=== PATIENT | female | born 1985 | race Hispanic/Latino ===

== ENCOUNTER 2020-02-08 14:39 | Emergency (ER) | payer SELFPAY ==
[2020-02-08] MEDS ORDERED: METHYLPREDNISOLONE 125 MG INJ ONE (15:47)
[2020-02-08] MEDS ORDERED: NA CHLORIDE 0.9% 1,000 ML ONE (15:47)
[2020-02-08] MEDS ORDERED: ALBUTEROL INHALER 60 PUFF/8 GM IH ONE (15:48)
[2020-02-08 15:51] LABS: Absolute Lymphocytes (CBC) 1.5 K/uL (0.7-4.9); Basophils % 0.9 % (0-1.3); Hematocrit 37.7 % (36.0-45.0); Lymphocytes % 23.5 % (15.3-44.8); MPV 9.5 fL (7.6-11.3); RBC Red Blood Cell Count 4.51 M/uL (3.86-4.86)
[2020-02-08 16:08] LABS: ALT/SGPT 18 U/L (12-78); AST/SGOT 17 U/L (15-37); Albumin 4.2 g/dL (3.4-5.0); Alkaline Phosphatase 103 U/L (45-117); BUN Blood Urea Nitrogen 12 mg/dL (7-18); Bicarbonate 24 mmol/L (21-32); Bilirubin Direct < 0.1 mg/dL (0-0.2); Bilirubin Total 0.3 mg/dL (0.2-1.0); Glucose Level 97 mg/dL (74-106); Magnesium 2.2 mg/dL (1.8-2.4); NT PRO-BNP 136 pg/mL (<125); Potassium 3.3 mmol/L (3.5-5.1); Protein, Total 8.6 g/dL (6.4-8.2); Sodium Level 142 mmol/L (136-145); Troponin (Emerg Dept Use Only) < 0.02 ng/mL (0.0-0.045)
--- NOTE | 2020-02-08 16:16 | RAD REPORT ---
EXAM DESCRIPTION: RAD - Chest Single View - 02/08/2020 4:06 pm CLINICAL HISTORY: Cough;Dyspnea Chest pain. COMPARISON: Chest Single View dated 09/16/2017 FINDINGS: Portable technique limits examination quality. The lungs are grossly clear. The heart is normal in size. No displaced fractures. IMPRESSION: No acute intrathoracic process suspected.
[2020-02-08] MEDS ORDERED: dexAMETHasone 4 MG TAB ONE (16:34)
--- NOTE | 2020-02-08 16:36 | ER ---
Nurse's Notes [facility] Name: Jenna Monreal Age: 35 yrs Sex: Female : 1985 Arrival Date: 02/08/2020 Time: 14:44 Bed 14 Private MD: Diagnosis: Weakness;Malaise and fatigue;Alopecia areata, unspecified;Bronchitis, not specified as acute or chronic;Abnormal electrocardiogram [ECG] [EKG]-prolonged QT;Hypokalemia;Urinary tract infection, site not specified Presentation: 02/07 15:27 Chief complaint: Patient states: Syncopal episode this morning while brushing her ph teeth, general weakness, fatigue x approx 2-3 weeks, body aches, hair loss, cough, denies SOB or fever. Coronavirus screen: Patient reports a cough. Patient denies shortness of breath or difficulty breathing. Patient denies measured and/or subjective temperature greater than 100.4F prior to today's visit. Patient denies travel on a cruise ship or to a country the [facility] currently lists as an affected area. Patient denies contact with known and/or suspected case of COVID-19. Patient instructed to continue to wear a mask when interacting with others. Patient moved to private room, placed in contact and droplet isolation with eye protection until further assessment. Ebola Screen: No symptoms or risks identified at this time. Initial Sepsis Screen: Does the patient meet any 2 criteria? No. Patient's initial sepsis screen is negative. Does the patient have a suspected source of infection? No. Patient's initial sepsis screen is negative. Risk Assessment: Do you want to hurt yourself or someone else? Patient reports no desire to harm self or others. Onset of symptoms was February 08, 2020. 15:27 Method Of Arrival: Ambulatory ph 15:27 Acuity: NATALIE 3 ph Triage Assessment: 15:42 General: Appears in no apparent distress. Behavior is calm, cooperative, appropriate vc for age. Pain: Complains of pain in Generalized Pain does not radiate. Pain currently is 7 out of 10 on a pain scale. Quality of pain is described as aching. 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 - Social history:: Smoking status: Patient reports the use of cigarette tobacco products, smokes one-half pack cigarettes per day. Screenin:42 Abuse screen: Denies threats or abuse. Nutritional screening: No deficits noted. vc Tuberculosis screening: No symptoms or risk factors identified. 17:37 Fall Risk Fall in past 12 months (25 points). IV access (20 points). Total Gee Fall ll1 Scale indicates High Risk Score (45 or more points). Fall prevention measures have been instituted. Side Rails Up X 2 Placed Close to Nursing Station Frequent Obs/Assessments Occuring As available patient and family educated on Fall Prevention Program and Strategies. Assessment: 15:48 General: Appears in no apparent distress. Behavior is calm, cooperative, appropriate ll1 for age. Pain: Denies pain. Neuro: Level of Consciousness is awake, alert, obeys commands, Oriented to person, place, time, situation, Appropriate for age Project Controller are equal bilaterally Moves all extremities. Full function Gait is steady, Speech is normal, Facial symmetry appears normal, Pupils are PERRLA, Reports headache a syncopal episode weakness. Cardiovascular: No deficits noted. Heart tones S1 S2 Capillary refill < 3 seconds Clubbing of nail beds is absent JVD is absent Patient's skin is warm and dry. Rhythm is regular. Respiratory: Reports cough that is Airway is patent Trachea midline Respiratory effort is even, unlabored, Respiratory pattern is regular, the patient has mild shortness of breath. GI: No deficits noted. 16:48 Reassessment: No changes from previously documented assessment. Patient and/or family ll1 updated on plan of care and expected duration. Pain level reassessed. Patient is alert, oriented x 3, equal unlabored respirations, skin warm/dry/pink. 17:36 Reassessment: Patient appears in no apparent distress at this time. No changes from ll1 previously documented assessment. Patient and/or family updated on plan of care and expected duration. Pain level reassessed. Patient is alert, oriented x 3, equal unlabored respirations, skin warm/dry/pink. Vital Signs: 15:27 BP 150 / 85; Pulse 85; Resp 16; Temp 97.1(TE); Pulse Ox 100% on R/A; Weight 99.79 kg; ph Height 5 ft. 2 in. (157.48 cm); Pain 7/10; 16:00 BP 137 / 86; Pulse 80; Resp 17; Pulse Ox 100% ; ll1 17:35 BP 131 / 81; Pulse 81; Resp 17; Pulse Ox 99% ; Pain 0/10; ll1 15:27 Body Mass Index 40.24 (99.79 kg, 157.48 cm) ph ED Course: 14:44 Patient arrived in ED. bp1 14:46 Sherry Garvey FNP-C is PHCP. kb 14:46 Mando Ballard MD is Attending Physician. kb 15:11 Mando Ballard MD is Attending Physician. andrade 15:13 Denzel Rivers, JUAQUIN is Primary Nurse. ll1 15:29 Triage completed. ph 15:43 Arm band placed on right wrist. vc 15:43 Patient has correct armband on for positive identification. Fall risk band placed. vc Placed in gown. Bed in low position. Call light in reach. workers compensation specialist on. Pulse ox on. NIBP on. 15:48 Inserted saline lock: 22 gauge in right antecubital area, using aseptic technique. ll1 Blood collected. 16:06 XRAY Chest (1 view) In Process Unspecified. EDMS 16:33 Giovanny Ascencio DO is Referral Physician. andrade 16:34 Keith Fox MD is Referral Physician. andrade 17:36 IV discontinued, intact, bleeding controlled, No redness/swelling at site. Pressure ll1 dressing applied. 17:36 No provider procedures requiring assistance completed. ll1 Administered Medications: 15:48 Drug: NS 0.9% 1000 ml Route: IV; Rate: 1 bolus; Site: right antecubital; ll1 17:00 Follow up: Response: No adverse reaction; RASS: Alert and Calm (0); IV Status: ll1 Completed infusion; IV Intake: 1000ml 15:48 Drug: SOLU-Medrol 125 mg Route: IVP; Site: right antecubital; ll1 17:39 Follow up: Response: No adverse reaction ll1 15:48 Drug: Albuterol HFA Inhaler 4 puffs Route: Inhalation; ll1 16:30 Drug: Decadron 2 mg Route: PO; ll1 17:38 Follow up: Response: No adverse reaction; RASS: Alert and Calm (0) ll1 16:44 Drug: Potassium Effervescent Tablet 25 mEq Route: PO; ll1 17:38 Follow up: Response: No adverse reaction; RASS: Alert and Calm (0) 1 17:28 Drug: Rocephin 1 grams Route: IV; Rate: per protocol; Site: right antecubital; ll1 17:37 Follow up: Response: No adverse reaction; RASS: Alert and Calm (0); IV Status: ll1 Completed infusion; IV Intake: 20ml Intake: 17:00 IV: 1000ml; Total: 1000ml. ll1 17:37 IV: 20ml; Total: 1020ml. 1 Outcome: 16:35 Discharge ordered by . [facility] 17:34 Patient left the ED. 1 17:37 Discharged to home ambulatory. 1 17:37 Condition: stable 17:37 Discharge instructions given to patient, Instructed on discharge instructions, follow up and referral plans. medication usage, Demonstrated understanding of instructions, follow-up care, medications, Prescriptions given X 3. Addendum: 02/11/2020 13:07 Addendum: COVID-19 Result: Negative result given to RN to notify pt. Contacted by: Eleuterio Aldana RN. Notified pt of negative COVID 19 swab results. Pt advised that even with a negative test result they should remain in isolation until symptom free for 3 days without medication. Pt also advised to return to the ED for worsening symptoms. 02/14/2020 12:23 Addendum: Culture Results: Positive urine culture. Prescription called-in to pharmacy [facility]. Bactrim DS x 10 days called in to [facility]. Signatures: Dispatcher [employer] EDMS Sherry Garvey, SEAN-C Mahogany Segura RN RN [id number] Anderson, Corey, MD MD cha Hall, Patricia, RN RN ph Baxter, Heather, RN Natalie Colorado RN RN vc Lewis, Lynsay, RN RN ll1 Jenna Mcdermott
--- NOTE | 2020-02-08 16:36 | EDPHYS ---
Physician Documentation [facility] Name: Jenna Monreal Age: 35 yrs Sex: Female : 1985 Arrival Date: 02/08/2020 Time: 14:44 Bed 14 Private MD: ED Physician Mando Ballard HPI: 02/07 15:29 This 35 yrs old Female presents to ER via Unassigned with complaints of Passed andrade Out Prior To Arrival, General Weakness, Decreased Appetite, Unexplained Hair Loss. 15:29 The patient has experienced near-syncope, almost passed out. Onset: The andrade symptoms/episode began/occurred this morning. Duration: This was a single episode, that lasted 30 second(s). Context: the episode(s) was witnessed, by co-worker(s), occurred at work. Associated injury: The patient did not suffer any apparent associated injury. Associated signs and symptoms: Pertinent positives: weakness. The patient has not experienced similar symptoms in the past. 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 - Social history:: Smoking status: Patient reports the use of cigarette tobacco products, smokes one-half pack cigarettes per day. ROS: 15:31 Constitutional: Negative for fever, chills, and weight loss, Eyes: Negative for injury, andrade pain, redness, and discharge, ENT: Negative for injury, pain, and discharge, Neck: Negative for injury, pain, and swelling, Cardiovascular: Negative for chest pain, palpitations, and edema, Abdomen/GI: Negative for abdominal pain, nausea, vomiting, diarrhea, and constipation, Back: Negative for injury and pain, : Negative for injury, bleeding, discharge, and swelling, MS/Extremity: Negative for injury and deformity, Skin: Negative for injury, rash, and discoloration, Neuro: Negative for headache, weakness, numbness, tingling, and seizure, Psych: Negative for depression, anxiety, suicide ideation, homicidal ideation, and hallucinations, Allergy/Immunology: Negative for hives, rash, and allergies, Endocrine: Negative for neck swelling, polydipsia, polyuria, polyphagia, and marked weight changes, Hematologic/Lymphatic: Negative for swollen nodes, abnormal bleeding, and unusual bruising. 15:31 Respiratory: Positive for cough, shortness of breath, at rest. wheezing, inspiratory, expiratory. Exam: 15:31 Constitutional: This is a well developed, well nourished patient who is awake, alert, andrade and in no acute distress. Head/Face: Normocephalic, atraumatic. Eyes: Pupils equal round and reactive to light, extra-ocular motions intact. Lids and lashes normal. Conjunctiva and sclera are non-icteric and not injected. Cornea within normal limits. Periorbital areas with no swelling, redness, or edema. ENT: Nares patent. No nasal discharge, no septal abnormalities noted. Tympanic membranes are normal and external auditory canals are clear. Oropharynx with no redness, swelling, or masses, exudates, or evidence of obstruction, uvula midline. Mucous membranes moist. Neck: Trachea midline, no thyromegaly or masses palpated, and no cervical lymphadenopathy. Supple, full range of motion without nuchal rigidity, or vertebral point tenderness. No Meningismus. Chest/axilla: Normal chest wall appearance and motion. Nontender with no deformity. No lesions are appreciated. Cardiovascular: Regular rate and rhythm with a normal S1 and S2. No gallops, murmurs, or rubs. Normal PMI, no JVD. No pulse deficits. Abdomen/GI: Soft, non-tender, with normal bowel sounds. No distension or tympany. No guarding or rebound. No evidence of tenderness throughout. Back: No spinal tenderness. No costovertebral tenderness. Full range of motion. Skin: Warm, dry with normal turgor. Normal color with no rashes, no lesions, and no evidence of cellulitis. MS/ Extremity: Pulses equal, no cyanosis. Neurovascular intact. Full, normal range of motion. Neuro: Awake and alert, GCS 15, oriented to person, place, time, and situation. Cranial nerves II-XII grossly intact. Motor strength 5/5 in all extremities. Sensory grossly intact. Cerebellar exam normal. Normal gait. Psych: Awake, alert, with orientation to person, place and time. Behavior, mood, and affect are within normal limits. 15:31 Respiratory: the patient does not display signs of respiratory distress, Respirations: labored breathing, that is mild, Breath sounds: decreased breath sounds, that are mild, rhonchi, that are mild, stridor, is not appreciated, + upper airway congestion. Respiratory rate: 16 15:38 Neuro: Orientation: is normal, appropriate for stated age, no acute changes, Mentation: andrade is normal, appropriate for stated age, no acute changes, Memory: is normal, appropriate for stated age, no acute changes, Cranial nerves: grossly normal, is grossly normal based on the patient's age, no acute changes, Cerebellar function: is grossly normal, is grossly normal based on the patient's age, no acute changes, Motor: is normal, is grossly normal based on the patient's age, no acute changes, moves all fours, Sensation: no obvious gross deficits, Gait: is steady, appropriate for age, Deep tendon reflexes are 2+ (normal) in the bilateral brachioradialis, bicep, tricep and patellar and Achilles tendons, Babinski testing is normal, seizure activity, is not displayed by the patient. 16:26 ECG was reviewed by the Attending Physician. andrade 16:32 Musculoskeletal/extremity: ROM: no acute changes, Circulation is intact in all [facility] extremities. Sensation intact. Compartment Syndrome exam of affected extremity: is normal. Weight bearing: able to fully bear weight, DVT Exam: No signs of deep vein thrombosis. no pain, no swelling, no tenderness, negative Homans' sign noted on exam, no appreciated bluish discoloration, no erythema, no increased warmth. Vital Signs: 15:27 BP 150 / 85; Pulse 85; Resp 16; Temp 97.1(TE); Pulse Ox 100% on R/A; Weight 99.79 kg; ph Height 5 ft. 2 in. (157.48 cm); Pain 7/10; 16:00 BP 137 / 86; Pulse 80; Resp 17; Pulse Ox 100% ; ll1 17:35 BP 131 / 81; Pulse 81; Resp 17; Pulse Ox 99% ; Pain 0/10; ll1 15:27 Body Mass Index 40.24 (99.79 kg, 157.48 cm) ph MDM: 15:11 Patient medically screened. [facility] 15:37 Data reviewed: vital signs, nurses notes, lab test result(s), EKG, radiologic studies, [facility] plain films. 16:21 Differential diagnosis: Anemia Anxiety Reaction asthma, Bronchitis pneumonia, pulmonary andrade edema, Pulmonary Embolism reactive airway disease, Unstable Angina. Antibiotic administration: The patient is discharged and will get outpatient antibiotics, Zithromax. Differential Diagnosis: cardiac arrhythmia, drug effect, , vasovagal episode. The patient's Wells Deep Vein Thrombosis Score was calculated as follows: Total Score: 0-2 Pts- Low Risk. Differential Diagnosis: Obstructed Airway Bronchitis Influenza Upper Respiratory Infection Pharyngitis Asthma Exacerbation Viral Syndrome Pneumonia. The patient's pulmonary embolism risk score was calculated as follows: Total Score: 0-2 points. This patient was found to be at low risk for a pulmonary embolism by using the Well's assessment criteria. Data interpreted: medical aides teacher: rate is 85 beats/min, Pulse oximetry: is 100 %. Test interpretation: by ED physician or midlevel provider: ECG, plain radiologic studies. Counseling: I had a detailed discussion with the patient and/or guardian regarding: the historical points, exam findings, and any diagnostic results supporting the discharge/admit diagnosis, the presence of at least one elevated blood pressure reading (>120/80) during this emergency department visit, lab results, radiology results, the need for outpatient follow up. ED course: pt much improved, breathing easier, will dc with follow up, return if worse. 16:31 ED course: pt feels fatigued,loosing hair in apatch, will do a tsh and refer to pcp for andrade follow up. 02/07 15:27 Order name: Basic Metabolic Panel; Complete Time: 16:18 02/07 15:27 Order name: CBC with Diff; Complete Time: 16:18 02/07 15:27 Order name: LFT's; Complete Time: 16:18 02/07 15:27 Order name: Magnesium; Complete Time: 16:18 02/07 15:27 Order name: NT PRO-BNP; Complete Time: 16:18 02/07 15:27 Order name: Troponin (emerg Dept Use Only); Complete Time: 16:18 02/07 15:27 Order name: XRAY Chest (1 view); Complete Time: 16:18 02/07 15:27 Order name: D-Dimer; Complete Time: 16:28 02/07 15:27 Order name: COVID-19 andrade 02/07 16:31 Order name: TSH: pt tired, losing hair; Complete Time: 17:26 [facility] 02/07 16:55 Order name: Urine Culture [facility] 02/07 16:56 Order name: Urine Dipstick--Ancillary (enter results); Complete Time: 17:15 oh 02/07 16:56 Order name: Urine --Ancillary (enter results); Complete Time: 17:15 oh 02/07 15:27 Order name: EKG; Complete Time: 15:28 [facility] 02/07 15:27 Order name: Cardiac monitoring; Complete Time: 15:41 [facility] 02/07 15:27 Order name: EKG - Nurse/Tech; Complete Time: 15:41 [facility] 02/07 15:27 Order name: IV Saline Lock; Complete Time: 15:41 [facility] 02/07 15:27 Order name: Labs collected and sent; Complete Time: 15:41 [facility] 02/07 15:27 Order name: O2 Per Protocol; Complete Time: 15:41 [facility] 02/07 15:27 Order name: O2 Sat Monitoring; Complete Time: 15:41 [facility] EC:26 Rate is 85 beats/min. Rhythm is regular. QRS [place] is Normal. DE interval is normal. QRS andrade interval is normal. QT interval is prolonged at 392 msec. No Q waves. T waves are Normal. No ST changes noted. Clinical impression: NSR w/ Non-specific ST/T Changes and No evidence of ischemia. Interpreted by me. Reviewed by me. Administered Medications: 15:48 Drug: NS 0.9% 1000 ml Route: IV; Rate: 1 bolus; Site: right antecubital; 1 17:00 Follow up: Response: No adverse reaction; RASS: Alert and Calm (0); IV Status: ll1 Completed infusion; IV Intake: 1000ml 15:48 Drug: SOLU-Medrol 125 mg Route: IVP; Site: right antecubital; ll1 17:39 Follow up: Response: No adverse reaction ll1 15:48 Drug: Albuterol HFA Inhaler 4 puffs Route: Inhalation; ll1 16:30 Drug: Decadron 2 mg Route: PO; ll1 17:38 Follow up: Response: No adverse reaction; RASS: Alert and Calm (0) ll1 16:44 Drug: Potassium Effervescent Tablet 25 mEq Route: PO; ll1 17:38 Follow up: Response: No adverse reaction; RASS: Alert and Calm (0) ll1 17:28 Drug: Rocephin 1 grams Route: IV; Rate: per protocol; Site: right antecubital; ll1 17:37 Follow up: Response: No adverse reaction; RASS: Alert and Calm (0); IV Status: ll1 Completed infusion; IV Intake: 20ml Disposition: 02/08/20 16:35 Discharged to Home. Impression: Weakness, Malaise and fatigue, Alopecia areata, unspecified, Bronchitis, not specified as acute or chronic, Abnormal electrocardiogram [ECG] [EKG] - prolonged QT, Hypokalemia, Urinary tract infection, site not specified. - Condition is Stable. - Discharge Instructions: Acute Bronchitis, Adult, Potassium Content of Foods, How to Use an Inhaler, Near-Syncope, Upper Respiratory Infection, Adult, Urinary Tract Infection, Adult, Weakness, Fatigue, Urinary Tract Infection, Adult, Bavi-np-Dqly, Near-Syncope, Uzkw-om-Kfle, Upper Respiratory Infection, Adult, Pqce-lz-Bvfp, Long QT Syndrome, Cough, Adult, Yjpn-ic-Rvam, Weakness, Wwaw-ll-Ktyg, Aspirin and Your Heart, Cough, Adult, How to Use an Inhaler, Guyu-ul-Mgis, Hypokalemia. - Prescriptions for dexamethasone 2 mg Oral tablet - take 1 tablet by ORAL route 3 times per day; 15 tablet. Albuterol Sulfate 90 mcg/actuation - inhale 1-2 puff by INHALATION route every 4-6 hours; 1 Inhaler. Augmentin 875- 125 mg Oral Tablet - take 1 tablet by ORAL route every 12 hours for 7 days; 14 tablet. - Medication Reconciliation Form, Thank You Letter, Antibiotic Education, Prescription Opioid Use, Work release form form. - Follow up: Private Physician; When: 2 - 3 days; Reason: Recheck today's complaints, Continuance of care, Re-evaluation by your physician. Follow up: Giovanny Ascencio DO; When: 2 - 3 days; Reason: Recheck today's complaints, Re-evaluation by your physician. Follow up: Keith Fox MD; When: 2 - 3 days; Reason: Recheck today's complaints, Re-evaluation by your physician. - Problem is new. - Symptoms have improved. Signatures: Dispatcher [employer] Mando García MD MD cha Hall, Patricia, RN RN Denzel Huddleston RN RN ll1 Corrections: (The following items were deleted from the chart) 16:55 16:35 02/08/2020 16:35 Discharged to Home. Impression: Weakness; Malaise and fatigue; andrade Alopecia areata, unspecified; Bronchitis, not specified as acute or chronic; Abnormal electrocardiogram [ECG] [EKG] - prolonged QT; Hypokalemia. Condition is Stable. Forms are Medication Reconciliation Form, Thank You Letter, Antibiotic Education, Prescription Opioid Use. Follow up: Private Physician; When: 2 - 3 days; Reason: Recheck today's complaints, Continuance of care, Re-evaluation by your physician. Follow up: Giovanny Ascencio; When: 2 - 3 days; Reason: Recheck today's complaints, Re-evaluation by your physician. Follow up: Keith Fox; When: 2 - 3 days; Reason: Recheck today's complaints, Re-evaluation by your physician. Problem is new. Symptoms have improved. [facility] 17:34 16:55 02/08/2020 16:35 Discharged to Home. Impression: Weakness; Malaise and fatigue; ll1 Alopecia areata, unspecified; Bronchitis, not specified as acute or chronic; Abnormal electrocardiogram [ECG] [EKG] - prolonged QT; Hypokalemia; Urinary tract infection, site not specified. Condition is Stable. Discharge Instructions: Acute Bronchitis, Adult, Potassium Content of Foods, How to Use an Inhaler, Near-Syncope, Upper Respiratory Infection, Adult, Weakness, Fatigue, Near-Syncope, Lhrd-fe-Nnlr, Upper Respiratory Infection, Adult, Ywtp-qg-Obgo, Long QT Syndrome, Cough, Adult, Nozb-uo-Qjgf, Weakness, Miia-nb-Fjry, Aspirin and Your Heart, Cough, Adult, How to Use an Inhaler, Hvky-sh-Vtnv, Hypokalemia. Prescriptions for dexamethasone 2 mg Oral tablet - take 1 tablet by ORAL route 3 times per day; 15 tablet, Zithromax Z-Panchito 250 mg Oral Tablet - take 1 tablet by ORAL route as directed for 5 days Day 1 - take two (2) tablets one time. Day 2, 3, 4 , 5 take one (1) tablet once daily.; 6 tablet, Albuterol Sulfate 90 mcg/actuation - inhale 1-2 puff by INHALATION route every 4-6 hours; 1 Inhaler. and Forms are Medication Reconciliation Form, Thank You Letter, Antibiotic Education, Prescription Opioid Use. Follow up: Private Physician; When: 2 - 3 days; Reason: Recheck today's complaints, Continuance of care, Re-evaluation by your physician. Follow up: Giovanny Ascencio; When: 2 - 3 days; Reason: Recheck today's complaints, Re-evaluation by your physician. Follow up: Keith Fox; When: 2 - 3 days; Reason: Recheck today's complaints, Re-evaluation by your physician. Problem is new. Symptoms have improved. andrade
[2020-02-08] MEDS ORDERED: POTASSIUM 25 MEQ EFFERV TAB ONE (16:51)
[2020-02-08 17:05] LABS: Urine Blood 2+ (NEG); Urine Glucose NEGATIVE (NEG); Urine Protein NEGATIVE (NEG); Urine Specific Gravity 1.025 (1.005-1.030)
[2020-02-08] MEDS ORDERED: CEFTRIAXONE/SWI 1gm 1 GM/10 ML SYR ONE (17:09)
[2020-02-08 17:44] VITALS: TEMP 97.1
[2020-02-08 17:47] VITALS: BP 131/81; O2SAT 99
== END 2020-02-08 17:34 | disposition home or self-care (01) ==
LOC: ER 14:39
DX: J40 Bronchitis, not specified as acute or chronic (principal); Z20.828 Contact with and (suspected) exposure to other viral communicable diseases; N39.0 Urinary tract infection, site not specified; E87.6 Hypokalemia; I45.81 Long QT syndrome; R53.81 Other malaise; R53.83 Other fatigue; L63.9 Alopecia areata, unspecified; F17.210 Nicotine dependence, cigarettes, uncomplicated
CPT/HCPCS: 36415; 71045; 80048; 80076; 81003; 81025; 83735; 83880; 84443; 84484; 85025; 85379; 87077; 87086; 87088; 87186; 93005; 96361; 96374; 96375; 99285; J0696; J2930; J7030; J8540; U0001

== ENCOUNTER 2022-05-29 15:13 | Emergency (ER) | payer SELFPAY ==
[2022-05-29] MEDS ORDERED: ALBUTEROL 2.5 MG/3 ML NEB SOL ONE (16:08)
[2022-05-29] MEDS ORDERED: IPRATROPIUM BROM 0.5MG/2.5ML ONE (16:08)
--- NOTE | 2022-05-29 16:10 | RAD REPORT ---
EXAM DESCRIPTION: RAD - Chest Pa And Lat (2 Views) - 05/29/2022 3:52 pm CLINICAL HISTORY: Cough COMPARISON: Portable 02/08/2020 TECHNIQUE: Frontal and lateral views of the chest were obtained. FINDINGS: The lungs are clear. Lung markings are similar to comparison. Heart size is normal and ce ntral vasculature is within normal limits. No pleural effusion or pneumothorax seen. No acute bony finding noted. No aortic abnormality. IMPRESSION: No acute cardiopulmonary process.
[2022-05-29] MEDS ORDERED: OSELTAMIVIR 75 MG CAP ONE (16:20)
--- NOTE | 2022-05-29 16:20 | ER ---
Nurse's Notes [facility] Name: Jenna Monreal Age: 37 yrs Sex: Female : 1985 Arrival Date: 05/29/2022 Time: 15:15 Bed 28 Private MD: Diagnosis: Influenza due to identified novel influenza A virus Presentation: 05/29 15:27 Chief complaint: Patient states: fever, cough, congestion since yesterday. Coronavirus ld1 screen: At this time, the client does not indicate any symptoms associated with coronavirus-19. Ebola Screen: No symptoms or risks identified at this time. Initial Sepsis Screen: Does the patient meet any 2 criteria? No. Patient's initial sepsis screen is negative. Does the patient have a suspected source of infection? No. Patient's initial sepsis screen is negative. Risk Assessment: Do you want to hurt yourself or someone else? Patient reports no desire to harm self or others. Onset of symptoms was May 29, 2022. 15:27 Method Of Arrival: Ambulatory ld1 15:27 Acuity: NATALIE 4 ld1 Triage Assessment: 15:28 General: Appears in no apparent distress. comfortable, Behavior is calm, cooperative, ld1 appropriate for age. Pain: Denies pain. EENT: No signs and/or symptoms were reported regarding the EENT system. Neuro: Level of Consciousness is awake, alert, obeys commands, Oriented to person, place, time, situation. Cardiovascular: Capillary refill < 3 seconds Patient's skin is warm and dry. Respiratory: Airway is patent Respiratory effort is even, unlabored, Breath sounds with wheezes in right lower lobe. GI: Abdomen is round non-distended. : No signs and/or symptoms were reported regarding the genitourinary system. 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 - Social history:: Smoking status: Patient reports the use of cigarette tobacco products, smokes one-half pack cigarettes per day, Reported history of juuling and/or vaping. Patient/guardian denies using alcohol. Screenin:12 Abuse screen: Denies threats or abuse. Denies injuries from another. Nutritional tp1 screening: No deficits noted. Tuberculosis screening: No symptoms or risk factors identified. Fall Risk None identified. Assessment: 16:10 Respiratory: Reports shortness of breath Breath sounds with wheezes. mb8 Vital Signs: 15:27 BP 122 / 72; Pulse 81; Resp 18; Temp 98.5(O); Pulse Ox 100% on R/A; Weight 113.4 kg; ld1 Height 5 ft. 4 in. (162.56 cm); Pain 0/10; 15:27 Body Mass Index 42.91 (113.40 kg, 162.56 cm) ld1 ED Course: 15:15 Patient arrived in ED. mr 15:18 Guru Sherry, [facility] kb 15:18 Mario Russo MD is Attending Physician. kb 15:28 Triage completed. ld1 15:28 Arm band placed on right wrist. ld1 15:30 Flu Sent. ld1 15:30 COVID-19 SARS RT PCR (Document "Date of Onset" if Symptomatic) Sent. ld1 15:53 Chest Pa And Lat (2 Views) XRAY In Process Unspecified. EDMS 16:11 Sarah Weinberg, JUAQUIN is Primary Nurse. tp1 16:11 Patient has correct armband on for positive identification. Bed in low position. Call tp1 light in reach. Adult w/ patient. 16:12 Pulse ox on. NIBP on. tp1 16:12 No provider procedures requiring assistance completed. Patient did not have IV access tp1 during this emergency room visit. Administered Medications: 16:10 Drug: Albuterol 2.5 mg Route: Inhalation; mb8 16:10 Drug: AtroVENT (ipratropium) Aerosol 0.5 mg Route: Inhalation; mb8 16:33 Follow up: Response: No adverse reaction; Marked relief of symptoms mb8 16:33 Follow up: Response: No adverse reaction; Marked relief of symptoms mb8 16:20 Drug: Tamiflu (oseltamivir) 75 mg Route: PO; mb8 16:33 Follow up: Response: Medication administered at discharge. mb8 Medication: 16:12 VIS not applicable for this client. tp1 Outcome: 16:20 Discharge ordered by . andres 16:32 Discharged to home ambulatory, with family. mb8 16:32 Condition: stable 16:32 Discharge instructions given to patient, Instructed on discharge instructions, follow up and referral plans. medication usage, Demonstrated understanding of instructions, follow-up care, medications, Prescriptions given X 1. 16:35 Patient left the ED. mb8 Signatures: Dispatcher [employer] EDOH Sherry Garvey, ALICE SECURITY SYSTEMS INSTALLER-Lizbeth Connors Lauren, RN RN ld1 Sarah Weinberg RN RN tp1 Chi Linn, JUAQUIN RN mb8 Corrections: (The following items were deleted from the chart) 15:29 15:28 PSHx: None; ld1 ld1
--- NOTE | 2022-05-29 16:20 | EDPHYS ---
Physician Documentation [facility] Name: Jenna Monreal Age: 37 yrs Sex: Female : 1985 Arrival Date: 05/29/2022 Time: 15:15 Bed 28 Private MD: ED Physician Mario Russo HPI: 05/29 16:19 This 37 yrs old Female presents to ER via Ambulatory with complaints of Flu kb Symptoms. 16:19 The patient or guardian reports cough, that is intermittent, described as moderate, flu kb symptoms, low-grade fever, myalgias. Onset: The symptoms/episode began/occurred 2 day(s) ago. Severity of symptoms: At their worst the symptoms were moderate, in the emergency department the symptoms are unchanged. Modifying factors: The symptoms are alleviated by nothing, the symptoms are aggravated by nothing. Associated signs and symptoms: Pertinent positives: fever, rhinorrhea, Pertinent negatives: chest pain, diarrhea, ear ache, nausea, sore throat, vomiting. The patient has not experienced similar symptoms in the past. The patient has not recently seen a physician. Pt reports cough, congestion, fever and headache for 2 days. 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 - Social history:: Smoking status: Patient reports the use of cigarette tobacco products, smokes one-half pack cigarettes per day, Reported history of juuling and/or vaping. Patient/guardian denies using alcohol. ROS: 16:15 Cardiovascular: Negative for chest pain, palpitations, and edema. kb 16:15 Constitutional: Positive for fever. 16:15 ENT: Positive for rhinorrhea, sinus congestion. 16:15 Respiratory: Positive for cough. 16:15 Neuro: Positive for headache. 16:15 All other systems are negative. Exam: 16:15 Constitutional: This is a well developed, well nourished patient who is awake, alert, kb and in no acute distress. Head/Face: Normocephalic, atraumatic. ENT: Moist Mucous membranes Cardiovascular: Regular rate and rhythm with a normal S1 and S2. No gallops, murmurs, or rubs. No pulse deficits. Abdomen/GI: Soft, non-tender. No distention Skin: Warm, dry with normal turgor. Normal color. MS/ Extremity: Pulses equal, no cyanosis. Neurovascular intact. Full, normal range of motion. Neuro: Awake and alert, GCS 15, oriented to person, place, time, and situation. Moves all extremities. Normal gait. Psych: Awake, alert, with orientation to person, place and time. Behavior, mood, and affect are within normal limits. 16:15 Respiratory: the patient does not display signs of respiratory distress, Respirations: normal, Breath sounds: wheezing: expiratory that is mild, is heard in the right middle lobe, right lower lobe, right posterior middle lobe and right posterior lower lobe. Vital Signs: 15:27 BP 122 / 72; Pulse 81; Resp 18; Temp 98.5(O); Pulse Ox 100% on R/A; Weight 113.4 kg; ld1 Height 5 ft. 4 in. (162.56 cm); Pain 0/10; 15:27 Body Mass Index 42.91 (113.40 kg, 162.56 cm) ld1 MDM: 15:18 Patient medically screened. kb 16:15 Data reviewed: vital signs, nurses notes. Data interpreted: Pulse oximetry: on room air kb is 100 %. Interpretation: normal. Counseling: I had a detailed discussion with the patient and/or guardian regarding: the historical points, exam findings, and any diagnostic results supporting the discharge/admit diagnosis, lab results, radiology results, the need for outpatient follow up, a family practitioner, to return to the emergency department if symptoms worsen or persist or if there are any questions or concerns that arise at home. 05/29 15:29 Order name: Flu; Complete Time: 16:09 kb 05/29 15:29 Order name: COVID-19 SARS RT PCR (Document "Date of Onset" if Symptomatic); Complete kb Time: 16:13 05/29 15:29 Order name: Chest Pa And Lat (2 Views) XRAY; Complete Time: 16:13 kb Administered Medications: 16:10 Drug: Albuterol 2.5 mg Route: Inhalation; mb8 16:10 Drug: AtroVENT (ipratropium) Aerosol 0.5 mg Route: Inhalation; 8 16:33 Follow up: Response: No adverse reaction; Marked relief of symptoms 8 16:33 Follow up: Response: No adverse reaction; Marked relief of symptoms 8 16:20 Drug: Tamiflu (oseltamivir) 75 mg Route: PO; 8 16:33 Follow up: Response: Medication administered at discharge. 8 Disposition: 18:09 Co-signature as Attending Physician, Mario Russo MD. rn Disposition Summary: 05/29/22 16:20 Discharge Ordered Location: Home kb Condition: Stable kb Diagnosis - Influenza due to identified novel influenza A virus kb Followup: kb - With: Private Physician - When: 2 - 3 days - Reason: Recheck today's complaints, Continuance of care, Re-evaluation by your physician Followup: kb - With: Emergency Department - When: As needed - Reason: Worsening of condition Discharge Instructions: - Discharge Summary Sheet kb - Influenza, Adult, [id number] kb Forms: - Medication Reconciliation Form kb - Thank You Letter kb - Work release form kb - Antibiotic Education kb - Prescription Opioid Use kb Prescriptions: - Tamiflu 75 mg Oral Capsule - take 1 tablet by ORAL route every 12 hours for 5 days; 9 tablet; Refills: 0, kb Product Selection Permitted Signatures: Dispatcher [employer] EDSherry Montilla, FLAP LINING BINDER-C FLAP LINING BINDER-Jaspalb Mario Russo MD MD rn Dibbern, Lauren, RN RN ld1 Chi Linn RN RN mb8 Corrections: (The following items were deleted from the chart) 15:29 15:28 PSHx: None; ld1 ld1
[2022-05-29 17:58] VITALS: BP 122/72; TEMP 98.5; O2SAT 100
== END 2022-05-29 16:35 | disposition home or self-care (01) ==
LOC: ER 15:13
DX: J10.1 Influenza due to other identified influenza virus with other respiratory manifestations (principal); Z20.822 Contact with and (suspected) exposure to COVID-19
CPT/HCPCS: 71046; 87804; 99284; U0003

== ENCOUNTER 2022-08-22 20:30 | Emergency (ER) | payer SELFPAY ==
[2022-08-22] MEDS ORDERED: ACETAMINOPHEN 500 MG TAB ONE (21:08)
--- NOTE | 2022-08-22 22:11 | ER ---
Nurse's Notes [facility] Name: Jenna Monreal Age: 37 yrs Sex: Female : 1985 Arrival Date: 08/22/2022 Time: 20:34 Bed 11 Private MD: Diagnosis: Acute tonsillitis, unspecified Presentation: 08/22 20:45 Chief complaint: Patient states: My throat hurts really bad. I noticed it first this kd3 morning around 7:30. It hurts to swallow. I was supposed to have my tonsils removed but I never did. Coronavirus screen: Vaccine status: Patient reports being unvaccinated. Ebola Screen: No symptoms or risks identified at this time. Initial Sepsis Screen: Does the patient meet any 2 criteria? No. Patient's initial sepsis screen is negative. Does the patient have a suspected source of infection? No. Patient's initial sepsis screen is negative. Risk Assessment: Do you want to hurt yourself or someone else? Patient reports no desire to harm self or others. Onset of symptoms was August 22, 2022. 20:45 Method Of Arrival: Ambulatory kd3 20:45 Acuity: NATALIE 4 kd3 Triage Assessment: 20:46 General: Appears in no apparent distress. Behavior is calm, cooperative. Pain: kd3 Complains of pain in uvula, left aspect of posterior pharynx and right aspect of posterior pharynx. 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 - Social history:: Smoking status: Patient reports the use of cigarette tobacco products, 2 a day , Reported history of juuling and/or vaping. Assessment: 21:24 Reassessment: pt intermittently coughing and clearing throat. General: Appears mb9 comfortable, Behavior is cooperative. Pain: Complains of pain in throat. Neuro: Donovan Agitation-Sedation Scale (RASS): 0 - Alert and Calm Level of Consciousness is awake, alert, obeys commands, Oriented to person, place, time, situation, Appropriate for age. Cardiovascular: Capillary refill < 3 seconds is brisk Patient's skin is warm and dry. Respiratory: Airway is patent Respiratory effort is even, unlabored, Respiratory pattern is regular, symmetrical. Respiratory:. GI: Patient currently denies diarrhea, nausea. : No signs and/or symptoms were reported regarding the genitourinary system. EENT: Throat is reddened. Derm: Skin is pink, warm \T\ dry. Musculoskeletal: Range of motion: intact in all extremities. 22:25 Reassessment: No changes from previously documented assessment. Patient and/or family mb9 updated on plan of care and expected duration. Pain level reassessed. Patient is alert, oriented x 3, equal unlabored respirations, skin warm/dry/pink. Vital Signs: 20:43 BP 139 / 76; Pulse 102; Resp 19; Temp 98.2(O); Pulse Ox 100% on R/A; Weight 108.86 kg; kd3 Height 5 ft. 4 in. (162.56 cm); Pain 7/10; 22:25 BP 140 / 78; Pulse 105; Resp 22; Pulse Ox 100% ; mb9 20:43 Body Mass Index 41.20 (108.86 kg, 162.56 cm) kd3 ED Course: 20:34 Patient arrived in ED. ag3 20:39 Mando Mcdonald PA is PHCP. cp 20:39 Mando Ballard MD is Attending Physician. cp 20:46 Triage completed. kd3 20:46 Arm band placed on right wrist. kd3 21:07 Strep Sent. kd3 22:17 Lizbeth Alatorre, RN is Primary Nurse. mb9 22:25 No provider procedures requiring assistance completed. Patient did not have IV access mb9 during this emergency room visit. Administered Medications: 21:07 Drug: Tylenol 1000 mg Route: PO; kd3 22:25 Drug: Clindamycin 300 mg Route: PO; mb9 22:25 Follow up: Response: No adverse reaction mb9 Outcome: 22:11 Discharge ordered by . cp 22:26 Discharged to home ambulatory. mb9 22:26 Condition: stable 22:26 Discharge instructions given to patient, Instructed on discharge instructions, follow up and referral plans. Demonstrated understanding of instructions, follow-up care, medications, Prescriptions given X 3. 22:26 Patient left the ED. mb9 Signatures: Mando Mcdonald PA PA cp Gomez, [facility] Rom, Clarice, RN RN kd3 Lizbeth Alatorre RN RN mb9 Corrections: (The following items were deleted from the chart) 20:46 20:44 Chief complaint: elsi3 kd3
--- NOTE | 2022-08-22 22:11 | EDPHYS ---
Physician Documentation [facility] Name: Jenna Monreal Age: 37 yrs Sex: Female : 1985 Arrival Date: 08/22/2022 Time: 20:34 Bed 11 Private MD: ED Physician Mando Ballard HPI: 08/22 21:00 This 37 yrs old Female presents to ER via Ambulatory with complaints of Sore cp Throat. 21:00 The patient presents with sore throat. The patient describes throat pain as constant. cp Onset: The symptoms/episode began/occurred this morning, and became worse today. Associated signs and symptoms: Pertinent negatives: congestion, cough, diarrhea, fever, vomiting. Severity of symptoms: in the emergency department the symptoms are unchanged. 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 - Social history:: Smoking status: Patient reports the use of cigarette tobacco products, 2 a day , Reported history of juuling and/or vaping. ROS: 21:05 Constitutional: Negative for body aches, chills, fever, poor PO intake. cp 21:05 Eyes: Negative for injury, pain, redness, and discharge. cp 21:05 ENT: Positive for sore throat, Negative for drainage from ear(s), ear pain, difficulty swallowing, difficulty handling secretions. 21:05 Respiratory: Negative for cough, shortness of breath, wheezing. 21:05 Abdomen/GI: Negative for abdominal pain, vomiting, diarrhea, constipation. 21:05 Neuro: Negative for altered mental status, headache, weakness. 21:05 All other systems are negative. Exam: 21:10 Constitutional: The patient appears in no acute distress, alert, awake, non-toxic, well cp developed, well nourished, obese. 21:10 Head/Face: Normocephalic, atraumatic. cp 21:10 Eyes: Periorbital structures: appear normal, Conjunctiva: normal, no exudate, no injection, Sclera: no appreciated abnormality, Lids and lashes: appear normal, bilaterally. 21:10 ENT: External ear(s): are unremarkable, Ear canal(s): are normal, clear, TM's: dullness, bilaterally, Nose: is normal, Mouth: Lips: moist, Oral mucosa: moist, Posterior pharynx: Airway: no evidence of obstruction, patent, Tonsils: bilaterally enlarged, with erythema, with exudate, Uvula: midline, erythema, that is moderate. 21:10 Neck: ROM/movement: is normal, is supple, without pain, no range of motions limitations, no meningismus, Lymph nodes: lymphadenopathy is appreciated, anterior cervical nodes. 21:10 Chest/axilla: Inspection: normal. 21:10 Cardiovascular: Rate: tachycardic. 21:10 Respiratory: the patient does not display signs of respiratory distress, Respirations: normal, no use of accessory muscles, no retractions, labored breathing, is not present, Breath sounds: are clear throughout, no decreased breath sounds, no stridor, no wheezing. 21:10 Abdomen/GI: Exam negative for discomfort, distension, guarding, Inspection: abdomen appears normal. 21:10 Skin: no rash present. Vital Signs: 20:43 BP 139 / 76; Pulse 102; Resp 19; Temp 98.2(O); Pulse Ox 100% on R/A; Weight 108.86 kg; kd3 Height 5 ft. 4 in. (162.56 cm); Pain 7/10; 22:25 BP 140 / 78; Pulse 105; Resp 22; Pulse Ox 100% ; mb9 20:43 Body Mass Index 41.20 (108.86 kg, 162.56 cm) kd3 MDM: 20:52 Patient medically screened. andrade 21:00 Differential diagnosis: viral Infection, bacterial infection, epiglottitis, cp rené-goyal virus, group A strep tonsillitis, mononucleosis, peritonsillar abscess. 22:10 Data reviewed: vital signs, nurses notes, lab test result(s), and as a result, I will cp discharge patient. 22:10 Consideration of Admission/Observation Escalation of care including cp admission/observation considered. I considered the following discharge prescriptions or medication management in the emergency department Medications were administered in the Emergency Department. See MAR. Test considered but Not performed: Labs: CBC, BMP. CT: soft tissue neck. Counseling: I had a detailed discussion with the patient and/or guardian regarding: the historical points, exam findings, and any diagnostic results supporting the discharge/admit diagnosis, lab results, to return to the emergency department if symptoms worsen or persist or if there are any questions or concerns that arise at home. 08/22 20:59 Order name: Strep cp 08/22 22:06 Order name: Throat Culture EDMS Administered Medications: 21:07 Drug: Tylenol 1000 mg Route: PO; kd3 22:25 Drug: Clindamycin 300 mg Route: PO; mb9 22:25 Follow up: Response: No adverse reaction mb9 Disposition Summary: 08/22/22 22:11 Discharge Ordered Location: Home cp Problem: new cp Symptoms: are unchanged cp Condition: Stable cp Diagnosis - Acute tonsillitis, unspecified cp Followup: cp - With: Private Physician - When: 1 - 2 days - Reason: Worsening of condition Discharge Instructions: - Discharge Summary Sheet cp - Tonsillitis cp Forms: - Medication Reconciliation Form cp - Thank You Letter cp - Antibiotic Education cp - Prescription Opioid Use cp - Work release form mb9 Prescriptions: - Lidocaine Viscous - take 5 milliliter by ORAL route every 4-6 hours As needed; 1 bottle; Refills: cp 0, Product Selection Permitted - Clindamycin HCl 300 mg Oral Capsule - take 1 capsule by ORAL route every 6 hours for 10 days; 40 capsule; Refills: 0, cp Product Selection Permitted - Ibuprofen 800 mg Oral Tablet - take 1 tablet by ORAL route every 8 hours As needed take with food; 30 tablet; cp Refills: 0, Product Selection Permitted Signatures: Dispatcher [employer] EDWI Mando Ballard MD MD cha Page, Corey, PA PA cp Clarice Cueto RN RN kd3 Lizbeth Alatorre RN RN mb9
[2022-08-22 22:32] VITALS: BP 140/78; O2SAT 100
[2022-08-22 22:34] VITALS: TEMP 98.2
== END 2022-08-22 22:26 | disposition home or self-care (01) ==
LOC: ER 20:30
DX: J03.90 Acute tonsillitis, unspecified (principal); F17.210 Nicotine dependence, cigarettes, uncomplicated
CPT/HCPCS: 87070; 87081

== ENCOUNTER 2025-03-02 14:14 | Emergency (ER) | payer SELFPAY ==
--- OUTSIDE RECORDS SUMMARY | 2025-03-02 14:17 | XMS REPORT | Continuity of Care Document ---
Author Name Unknown Address [address] [facility] [address] [place] [address] [facility] [address] [facility] [address] [place] [address] Care Team Providers Care Technology Coach Name Role Phone Unavailable Unavailable Unavailable Encounters Start Date/Time End Date/Time Encounter Type Admission Type Attending Clinicians [facility] Facility Care Department Encounter ID Source 2025-02-11 13:38:39 2025-02-11 13:38:39 Outpatient SFA SFA 07 Dominic Antoine 2025-01-14 13:40:54 2025-01-14 13:40:54 Outpatient SFA SFA [id number] Dominic Antoine 2024-12-17 13:39:57 2024-12-17 13:39:57 Outpatient SFA SFA [id number] Dominic Antoine 2024-11-19 13:21:06 2024-11-19 13:21:06 Outpatient SFA SFA [id number] Dominic Antoine 2024-10-22 13:19:37 2024-10-22 13:19:37 Outpatient SFA SFA [id number] Dominic Antoine 2024-09-24 13:21:29 2024-09-24 13:21:29 Outpatient SFA SFA [id number] Dominic Antoine 2024-08-27 13:13:08 2024-08-27 13:13:08 Outpatient SFA SFA [id number] Dominic Antoine 2024-07-29 16:57:23 2024-07-29 16:57:23 Outpatient SFA SFA [id number] Dominic Antoine 2024-07-02 14:11:54 2024-07-02 14:11:54 Outpatient SFA SFA [id number] Dominic Antoine 2024-06-05 13:30:23 2024-06-05 13:30:23 Outpatient SFA SFA [id number] Dominic Antoine 2024-05-08 13:23:23 2024-05-08 13:23:23 Outpatient SFA SFA [id number] Dominic Antoine 2024-04-24 14:25:46 2024-04-24 14:25:46 Outpatient SFA SFA [id number] Dominic Antoine 2024-04-10 13:22:46 2024-04-10 13:22:46 Outpatient SFA SFA [id number] Dominic Antoine 2024-04-07 15:36:09 2024-04-07 15:36:09 Outpatient SFA SFA [id number] Dominic Antoine 2024-04-03 11:05:41 2024-04-03 11:05:41 Outpatient SFA SFA [id number] Dominic Antoine 2024-03-31 15:54:30 2024-03-31 15:54:30 Outpatient SFA SFA [id number] Dominic Antoine 2024-03-27 13:56:55 2024-03-27 13:56:55 Outpatient SFA SFA [id number] Dominic Antoine Results Test Description Test Time Test Comments Results Result Co mments Source HEPATITIS PANEL, [id number] 04:34:49* Test Item Value Reference Range Interpretation Comme nts HEPATITIS A TOTAL AB (test code = 2725) NON-REACTIVE NON-REACTIVE HEPATITIS B SURF AG (test code = 2739) NON-REACTIVE NON-REACTIVE HEP B CORE TOTAL AB (test code = 2729) NON-REACTIVE NON-REACTIVE HEPATITIS B SURFACE AB (test code = 2737) NON-REACTIVE NON-REACTIVE HEPATITIS C ANTIBODY (test code = 4675) NON-REACTIVE NON-REACTIVE INTERPRETATION HEPATITIS A: (test code = 2552) (NOTE) Hepatitis A sero logy shows no evidence of past exposure to orcurrent infection with hepatitis A virus; patient not immune tohepatitis A. INTERPRETATION HEPATITIS B: (test code = 70360) (NOTE) Hepatitis B sero logy shows no evidence of past exposure to orcurrent infection with hepatitis B virus. No evidence of hepatitis Bimmunization is identified. INTERPRETATION HEPATITIS C: (test code = 36667) (NOTE) Hepatitis C sero logy shows no evidence of exposure to hepatitisC virus at this time. It can take up to 12 months after exposure tothe hepatitis C virus for antibodies to become detectable in the blood in certain patients. UNLESS OTHERWISE INDICATED, ALL TESTING PERFORMED AT [facility] [address] [place] [id number] ASSOCIATE SCIENTIST: SANDY GALICIA M.D. CLIA NUMBER [id number] [facility] [place]. [id number] COMPREHENSIVE METABOLIC [id number] 03:57:24* Test Item Value Reference Range Interpretation Comme nts GLUCOSE (test code = 2216) 108 MG/DL 70-99 H BUN (test code = 2207) 10 MG/DL 6-20 CREATININE (test code = 221) 0.68 MG/DL 0.60-1.30 eGFR (2020 CKD-EPI) (test code = 29133) 114 ML/MIN/1.73 >60 CALC BUN/CREAT (test code = 2235) 15 RATIO 6-28 SODIUM (test code = 223) 139 MEQ/L 133-146 POTASSIUM (test code = 2228) 4.7 MEQ/L 3.5-5.4 CHLORIDE (test code = 2215) 101 MEQ/L 95-107 CARBON DIOXIDE (test code = 2206) 25 MEQ/L 19-31 CALCIUM (test code = 2209) 10.5 MG/DL 8.5-10.5 PROTEIN, TOTAL (test code = 222) 7.8 G/DL 6.1-8.3 ALBUMIN (test code = 2201) 4.7 G/DL 3.5-5.2 CALC GLOBULIN (test code = 2240) 3.1 G/DL 1.9-3.7 CALC A/G RATIO (test code = 2234) 1.5 RATIO 1.0-2.6 BILIRUBIN, TOTAL (test code = 2207) 0.2 MG/DL <=1.2 ALKALINE PHOSPHATASE (test code = 4) 93 U/L 40-112 AST (test code = 2218) 31 U/L 9-40 ALT (test code = 2219) 31 U/L 5-40 CBC W/AUTO DIFF WITH [id number] 01:53:09* Test Item Value Reference Range Interpretation Comme nts WBC (test code = 1001) 8.1 K/UL 3.5-11.0 RBC (test code = 1002) 4.79 M/UL 3.80-5.40 HEMOGLOBIN (test code = 1003) 13.1 G/DL 11.5-15.5 HEMATOCRIT (test code = 1004) 40.8 % 34.0-45.0 MCV (test code = 1005) 85.2 fL 80.0-99.0 MCH (test code = 1006) 27.3 PG 25.0-33.0 MCHC (test code = 1007) 32.1 G/DL 31.0-36.0 RDW (test code = 1038) 13.1 % 11.5-15.0 NEUTROPHILS (test code = 1008) 59.7 % LYMPHOCYTES (test code = 1010) 30.2 % MONOCYTES (test code = 1011) 7.7 % EOSINOPHILS (test code = 1012) 1.4 % BASOPHILS (test code = 1013) 0.6 % IMMATURE GRANULOCYTES (test code = 1036) 0.4 % NUCLEATED RBCS (test code = 1065) 0.0 /100 WBC'S See_Comment [Automated messa ge] The system which generated this result transmitted reference range: 0.0. The reference range was not used to interpret this result as normal/abnormal. PLATELET COUNT (test code = 1015) 417 K/UL 130-400 H ABSOLUTE NEUTROPHILS (test code = 1066) 4.84 K/UL 1.50-7.50 ABSOLUTE LYMPHOCYTES (test code = 1067) 2.45 K/UL 1.00-4.00 ABSOLUTE MONOCYTES (test code = 1068) 0.62 K/UL 0.20-1.00 ABSOLUTE EOSINOPHILS (test code = 1040) 0.11 K/UL 0.00-0.50 ABSOLUTE BASOPHILS (test code = 1069) 0.05 K/UL 0.00-0.20 ABS IMMATURE GRANULOCYTES (test code = 1020) 0.03 K/UL 0.00-0.10 ABS NUCLEATED RBCS (test code = 74466) 0.00 K/UL 0.00-0.11
[2025-03-02] MEDS ORDERED: ALBUTEROL 2.5 MG/3 ML NEB SOL ONE (16:02)
--- NOTE | 2025-03-02 16:45 | RAD REPORT ---
EXAM: Knee Left 3 View INDICATION: pain COMPARISON: None FINDINGS: No acute fracture. Dorsal defect of the patella, a normal variant. No significant knee effusion. No significant focal degenerative changes. Other: N/A IMPRESSION: No acute osseous abnormality involving the imaged knee.
--- NOTE | 2025-03-02 16:46 | RAD REPORT ---
EXAM: Foot Left 3 View HISTORY: PAIN COMPARISON: None FINDINGS: Bones: No acute fracture identified. Alignment:No significant malalignment. Degenerative changes:None significant. Other: n/a IMPRESSION: No acute osseous abnormality.
--- NOTE | 2025-03-02 16:53 | RAD REPORT ---
EXAM: Chest Single View HISTORY: 40 years Female DYSPNEA COMPARISON: 05/29/2022 FINDINGS: LUNGS/PLEURA: The lungs are clear. No pleural effusions or pneumothorax. No pulmonary edema. CARDIAC/MEDIASTINUM: The cardiac silhouette is within normal limits. UPPER ABDOMEN: No significant abnormality. BONES: No acute abnormality. LINES/TUBES/OTHER: N/A IMPRESSION: No evidence of acute cardiopulmonary disease.
--- NOTE | 2025-03-02 16:53 | RAD REPORT ---
EXAMINATION: Shoulder Left 2+ Views CLINICAL INDICATION: Female, 40 years old. PAIN COMPARISON: No prior exam. FINDINGS: No acute fracture. No malalignment/dislocation. Mild left AC joint degenerative changes. Other: n/a IMPRESSION: No acute osseous abnormality.
--- NOTE | 2025-03-02 16:53 | RAD REPORT ---
EXAMINATION: Ribs Left VIEWS: Four views CLINICAL INDICATION: Female, 40 years old. PAIN COMPARISON: No prior exam. IMPRESSION: No displaced left-sided rib fractures. No pneumothorax.
--- NOTE | 2025-03-02 17:02 | EDPHYS ---
[facility] Name: Jenna Monreal Age: 40 yrs Sex: Female : 1985 Arrival Date: 03/02/2025 Time: 14:14 Bed 11 Private MD: ED Physician Mando Ballard HPI: 03/02 15:06 This 40 yrs old Female presents to ER via Unassigned with complaints of Fall kb Injury. 15:06 Patient is a 40-year-old female who presents for left-sided pain and shortness of kb breath after falling last night. States her children got a toy stuck on the roof of her trailer so she climbed up to retrieve it. States she fell onto the ground onto the left side, approximately 7 foot fall. Patient reports pain to left foot, left ribs and left shoulder blade shortness of breath.. GLASSIE: 15:15 LMP 03/02/2025, unknown dd2 Historical: - Allergies: 15:15 No Known Allergies; dd2 - PMHx: 15:15 None; dd2 - PSHx: 15:15 section; dd2 - Immunization history:: Adult Immunizations up to date. - Infectious Disease History:: Denies. - Social history:: Smoking status: Reported history of juuling and/or vaping. ROS: 15:07 Constitutional: As per HPI kb Exam: 15:07 Constitutional: This is a well developed, well nourished patient who is awake, alert, kb and in no acute distress. Head/Face: Normocephalic, atraumatic. ENT: Moist Mucous membranes Neck: Trachea midline and no cervical lymphadenopathy. Supple, full range of motion without nuchal rigidity, or vertebral point tenderness. No Meningismus. Cardiovascular: Regular rate Abdomen/GI: Soft, non-tender. No distention Skin: Warm, dry with normal turgor. Normal color. Neuro: Awake and alert, GCS 15, oriented to person, place, time, and situation. 15:07 Chest/axilla: Inspection: normal, Palpation: tenderness, that is moderate, of the left lateral anterior chest, that totally reproduces the patient's complaints, 15:07 Respiratory: the patient does not display signs of respiratory distress, Respirations: normal, Breath sounds: wheezing: expiratory that is mild, is scattered, 15:07 Musculoskeletal/extremity: Extremities: grossly normal except: noted in the lateral aspect of left thigh and lateral aspect of left calf: abrasion, noted in the dorsum of left foot: abrasion, ecchymosis, pain, ROM: intact in all extremities, Circulation is intact in all extremities. Sensation intact. Weight bearing: can bear weight with assistance only, uses cane, Vital Signs: 15:11 BP 131 / 92; Pulse 83; Resp 17; Temp 98.3; Pulse Ox 100% ; Weight 136.53 kg; Height 5 dd2 ft. 3 in. ; Pain 10/10; 15:11 Body Mass Index 53.32 (136.53 kg, 160.02 cm) dd2 15:11 Pain Scale: Adult dd2 MDM: 14:54 Medical Screening Exam initiated kb 15:08 Differential diagnosis: abrasion, closed head injury, contusion, fracture, kb Pneumothorax. Data reviewed: vital signs, nurses notes. 16:32 Independent interpretation of the following test(s) in the Emergency Department X-Ray: kb My interpretation is no pneumothorax on CXR, no fracture identified on foot, knee, shoulder or rib series. 17:01 Counseling: I had a detailed discussion with the patient and/or guardian regarding the kb historical points, exam findings, and any diagnostic results supporting the discharge/admit diagnosis, radiology results, the need for outpatient follow up, a family practitioner, to return to the emergency department if symptoms worsen or persist or if there are any questions or concerns that arise at home. 03/02 14:54 Order name: Chest Single View XRAY; Complete Time: 16:57 kb 03/02 14:54 Order name: Ribs Left XRAY; Complete Time: 16:57 kb 03/02 14:54 Order name: Foot Left 3 View XRAY; Complete Time: 16:52 kb 03/02 14:54 Order name: Shoulder Left (2 View) XRAY; Complete Time: 16:57 kb 03/02 15:45 Order name: Knee Left 3 View; Complete Time: 16:52 EDMS Administered Medications: 16:13 Drug: Albuterol Inhalation 2.5 mg Inhalation once Route: Inhalation; ap3 Disposition Summary: 03/02/25 17:02 Discharge Ordered Notes: Location: Home kb Condition: Stable kb Diagnosis - chest wall pain kb - left rib pain kb - contusion of left foot kb - abrasion of left leg kb Followup: kb - With: Emergency Department - When: As needed - Reason: Worsening of condition Followup: kb - With: Private Physician - When: 2 - 3 days - Reason: Recheck today's complaints, Continuance of care, Re-evaluation by your physician Discharge Instructions: - Discharge Summary Sheet kb - Rib Contusion kb - Chest Wall Pain, [id number] kb - Contusion, [id number] kb - Abrasion, [id number] kb Forms: - Medication Reconciliation Form kb - Antibiotic Education kb - Prescription Opioid Use kb - Patient Portal Instructions kb - Leadership Thank You Letter kb Prescriptions: - Diclofenac Sodium 75 mg Oral tablet, delayed release (enteric coated) - take 1 tablet ORAL route 2 times per day As needed; 30 tablet; Refills: 0, kb Product Selection Permitted - orphenadrine citrate 100 mg Oral Tablet Sustained Release - take 1 tablet ORAL route 2 times per day As needed; 20 tablet; Refills: 0, kb Product Selection Permitted Addendum: 03/05/2025 14:36 Co-signature as Attending Physician, Mando Ballard MD I agree with the assessment and c keith plan of care. Signatures: Dispatcher [employer] EDMS Sherry Garvey, CLOTH WORKER-C CLOTH WORKER-Ckb Mando Ballard MD MD cha Prokisch, Amanda RN RN ap3 MELISSA HAN RN RN dd2 Corrections: (The following items were deleted from the chart) 03/02 15:08 15:07 Musculoskeletal/extremity: Extremities: grossly normal except: noted in the kb lateral aspect of left thigh and lateral aspect of left calf: abrasion, noted in the dorsum of left foot: abrasion, ecchymosis, pain, kb
--- NOTE | 2025-03-02 17:02 | ER ---
Nurse's Notes [facility] Name: Jenna Monreal Age: 40 yrs Sex: Female : 1985 Arrival Date: 03/02/2025 Time: 14:14 Bed 11 Private MD: Diagnosis: chest wall pain;left rib pain;contusion of left foot;abrasion of left leg Presentation: 03/02 15:11 Chief complaint: Patient states: SHE CLIMBED ONTO A TRAILER TO GET A TOY FOR HER KIDS, dd2 SLIPPED AND FELL ON HER LEFT SIDE, LT LEG AND RT FACE. Coronavirus screen: At this time, the client does not indicate any symptoms associated with coronavirus-19. Ebola Screen: No symptoms or risks identified at this time. Initial Sepsis Screen: Does the patient meet any 2 criteria? No. Patient's initial sepsis screen is negative. Does the patient have a suspected source of infection? No. Patient's initial sepsis screen is negative. Risk Assessment: Do you want to hurt yourself or someone else? Patient reports no desire to harm self or others. Onset of symptoms was March 01, 2025. 15:11 Method Of Arrival: Ambulatory dd2 15:11 Acuity: NATALIE 3 dd2 Triage Assessment: 15:15 General: Appears in no apparent distress. uncomfortable, Behavior is calm, cooperative, dd2 appropriate for age. Pain: Complains of pain in left foot and left leg and left lateral anterior chest, RT SIDE OF FACE. PROJECT/PRODUCTION MANAGER IMAGING: 15:15 LMP 03/02/2025, unknown dd2 Historical: - Allergies: 15:15 No Known Allergies; dd2 - PMHx: 15:15 None; dd2 - PSHx: 15:15 section; dd2 - Immunization history:: Adult Immunizations up to date. - Infectious Disease History:: Denies. - Social history:: Smoking status: Reported history of juuling and/or vaping. Screenin:[facility] ED Fall Risk Assessment (Adult) History of falling in the last 3 months, ap3 including since admission Yes- single mechanical fall (1 pt) Confusion or Disorientation No (0 pts) Intoxicated or Sedated No (0 pts) Impaired Gait No (0 pts) Mobility Assist Device Used Yes (1 pt) Altered Elimination No (0 pt) Score/Fall Risk Level 0 - 2 = Low Risk Oriented to surroundings, Maintained a safe environment, Educated pt \T\ family on fall prevention, incl call for assistance when getting out of bed, Assessed \T\ reinforced patient's understanding of fall precautions, Hourly rounding (assess needs \T\ fall precautionary measures) done, Used ambulatory aids as needed (educated on \T\ assisted with). Abuse screen: Denies threats or abuse. Nutritional screening: No deficits noted. Tuberculosis screening: No symptoms or risk factors identified. Assessment: 16:15 General: Appears in no apparent distress. Behavior is calm, cooperative, appropriate ap3 for age. Pain: Complains of pain in left foot and left leg and left lateral anterior chest. Neuro: Level of Consciousness is awake, alert, obeys commands, Oriented to person, place, time, situation, Appropriate for age Speech is normal. Cardiovascular: Patient's skin is warm and dry. Respiratory: Reports pain with respiration Airway is patent Respiratory effort is even, unlabored, Respiratory pattern is regular, symmetrical. 16:47 Reassessment: Patient and/or family updated on plan of care and expected duration. Pain ap3 level reassessed. Patient is alert, oriented x 3, equal unlabored respirations, skin warm/dry/pink. Vital Signs: 15:11 BP 131 / 92; Pulse 83; Resp 17; Temp 98.3; Pulse Ox 100% ; Weight 136.53 kg; Height 5 dd2 ft. 3 in. ; Pain 10/10; 15:11 Body Mass Index 53.32 (136.53 kg, 160.02 cm) dd2 15:11 Pain Scale: Adult dd2 ED Course: 14:17 Patient arrived in ED. im 14:19 Sherry Garvey FNP-C is PHCP. kb 14:19 Mando Ballard MD is Attending Physician. kb 15:15 Triage completed. dd2 15:15 Arm band placed on right wrist. dd2 15:45 Patient placed in an exam room, on a stretcher. ll1 15:48 Chest Single View XRAY In Process Unspecified. EDMS 15:48 Ribs Left XRAY In Process Unspecified. EDMS 15:48 Foot Left 3 View XRAY In Process Unspecified. EDMS 15:48 Shoulder Left (2 View) XRAY In Process Unspecified. EDMS 15:48 Knee Left 3 View In Process Unspecified. EDMS 16:15 Yumiko Manriquez, RN is Primary Nurse. ap3 16:48 Patient has correct armband on for positive identification. Bed in low position. Call ap3 light in reach. Side rails up X 1. Provided Education on: fall risk education . Pulse ox on. NIBP on. 17:41 No provider procedures requiring assistance completed. Patient did not have IV access ap3 during this emergency room visit. Administered Medications: 16:13 Drug: Albuterol Inhalation 2.5 mg Inhalation once Route: Inhalation; ap3 Medication: 17:42 VIS not applicable for this client. ap3 Outcome: 17:02 Discharge ordered by . kb 17:42 Discharged to home ambulatory, ap3 17:42 Condition: good 17:42 Discharge instructions given to patient, Instructed on discharge instructions, follow up and referral plans. medication usage, Demonstrated understanding of instructions, follow-up care, medications, Prescriptions given X 2, 17:42 Patient left the ED. ap3 Signatures: Dispatcher [employer] EDIL Sherry Garvey, MANAGER OF SOFTWARE DEVELOPMENT-C MANAGER OF SOFTWARE DEVELOPMENT-Yumiko Buckley, RN RN ap3 Denzel Rivers, RN RN ll1 Debbie Gómez DIANA, RN RN dd2
[2025-03-02 17:57] VITALS: BP 131/92; TEMP 98.3; O2SAT 100
== END 2025-03-02 17:42 | disposition home or self-care (01) ==
LOC: ER 14:14
DX: R07.9 Chest pain, unspecified (principal); R07.81 Pleurodynia; S80.812A Abrasion, left lower leg, initial encounter; S90.32XA Contusion of left foot, initial encounter
CPT/HCPCS: 71045; 99284; J7613